=== PATIENT | female | born 1990 | race Two or more races ===

== ENCOUNTER 2018-05-07 16:33 | Emergency (ER) | payer SELFPAY ==
[~2018-05-07] VITALS: Ht 177.8 cm; Wt 110.0 kg
[2018-05-07] MEDS ORDERED: IBUPROFEN 600MG TABLET PO ONE (20:15)
[2018-05-07 20:25] VITALS: BP 124/74
== END 2018-05-07 20:49 | disposition home or self-care (01) ==
LOC: ER 17:00
DX: S39.012A Strain of muscle, fascia and tendon of lower back, initial encounter (principal); S16.1XXA Strain of muscle, fascia and tendon at neck level, initial encounter; V49.88XA Car occupant (driver) (passenger) injured in other specified transport accidents, initial encounter; Y93.89 Activity, other specified; Y92.89 Other specified places as the place of occurrence of the external cause; Y99.8 Other external cause status
CPT/HCPCS: 99282